=== PATIENT | female | born 1995 | race Caucasian/White ===

== ENCOUNTER 2018-12-09 16:56 | Emergency (ER) | payer OTHER, BC, SELFPAY ==
[2018-12-09 16:58] VITALS: BP 120/66; PULSE 77; RESP 18; TEMP 36.1; O2SAT 96; BMI 29.7
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
--- NOTE | 2018-12-09 17:30 | RAD_ITS ---
STUDY: X-RAY - CERVICAL SPINE REASON FOR EXAM: Female, 23 years old. Posttraumatic pain TECHNIQUE: 3 view(s) of the cervical spine were obtained. COMPARISON: None FINDINGS: Normal anterior atlantoaxial articulation. Normal odontoid process. Normal cervical lordosis. Normal vertebral bodies and endplates. Normal disc space heights. Normal visualized intervertebral neuroforamina. The soft tissue structures are unremarkable. RAD/Cerv Spine 2 or 3 Views IMPRESSION: Normal x-ray examination of the visualized cervical spine. Electronically Signed: Sumit Peterson MD at 18:49 EDT , Service support ,
[2018-12-09 19:38] VITALS: BP 110/86; PULSE 76; RESP 17; O2SAT 99
== END 2018-12-09 19:38 | disposition home or self-care (01) ==
PROVIDERS: Emergency Provider Emergency Medicine; Family Provider Family Medicine; PCP Family Medicine
DX: S16.1XXA Strain of muscle, fascia and tendon at neck level, initial encounter (principal); V89.2XXA Person injured in unspecified motor-vehicle accident, traffic, initial encounter
CPT/HCPCS: 72040; 99282

== ENCOUNTER 2020-01-02 12:06 | Emergency (ER) | payer BC, SELFPAY ==
[2020-01-02 12:08] VITALS: BP 143/85; PULSE 99; RESP 16; TEMP 36.3; O2SAT 98; BMI 36.0
[2020-01-02 12:18] VITALS: BP 123/69; PULSE 95; RESP 15; O2SAT 98
--- NOTE | 2020-01-02 12:20 | EKG12_ITS ---
Test Reason : CHEST PRESSURE Blood Pressure : / mmHG Vent. Rate : 078 BPM Atrial Rate : 078 BPM P-R Int : 130 ms QRS Dur : 086 ms QT Int : 368 ms P-R-T Axes : 046 077 024 degrees QTc Int : 419 ms Normal sinus rhythm Normal ECG Confirmed by LEANNA ROBERTS, RENE ([id number]), desk editor CHRISTOPHER MARTINEZ ([id number]) on 01/04/2020 9:36:00 AM Referred By: [facility] Confirmed By:RENE RAM MD
--- NOTE | 2020-01-02 12:21 | RAD_ITS ---
STUDY: X-RAY CHEST REASON FOR EXAM: Female, 24 years old. Mid chest pain started today after an anxiety attack -- syncope earlier today TECHNIQUE: PA and lateral views of the chest. COMPARISON: None. FINDINGS: EKG electrodes are seen. The lungs are clear and expanded. There is no demonstrated pleural abnormality. Normal size heart. Normal mediastinum and mykel. Normal visualized pulmonary arteries. Normal visualized aortic arch and descending thoracic aorta. Normal visualized thoracic spine. Normal visualized ribs, clavicles, and shoulders. There is no demonstrated abnormality of the visualized soft tissue structures of the upper abdomen. RAD/Chest PA and Lateral IMPRESSION: Normal x-ray examination of the chest. Electronically Signed: Valentín Mittal, at 13:13 EDT , Service support ,
--- NOTE | 2020-01-02 12:21 | ED.DCSUM_ITS ---
History of Present Illness Chief Complaint: Anxiety Narrative: Patient is a 24-year-old female who presents with chest pain and syncope. She states she was recently started on an anxiety medication. Since that time she has felt hot but not had a fever whenever her temperature was checked. She also complains of nausea. Today in the shower she began to feel lightheaded and she got very nauseated. She began to dry heaving to the toilet. She had a syncopal episode and woke on the floor. She now has sharp chest pain that is worse with movement of her arms or torso. She denies recent illness such as fevers cough diarrhea. She is on oral contraceptive. No history of DVT or pulmonary embolism. No leg pain or swelling. Past Medical History - Allergies and Home Meds Allergies/Adverse Reactions: Allergies cefaclor [From [facility]] Allergy (Verified 01/02/20 12:08) Hiv[facility] Primary Care Physician: Maritza Edmond DO [Primary Care Provider] - Past Medical History: - - Anxiety Smoking Status: Current every day smoker Review of Systems All systems negative except as indicated General: Denies: Fever Eyes: Denies: Visual changes - bilaterally ENT: Denies: Bilateral ear pain Cardiovascular: Reports: Chest pain, - - Syncope Respiratory: Denies: Dyspnea, Cough Gastrointestinal: Reports: Nausea, Vomiting. Denies: Abdominal pain Musculoskeletal: Denies: Myalgias, Arthralgias Skin: Denies: Rash Neurological: Denies: Headache Hematologic: Denies: Easy bruising Allergy: Denies: Uticaria Physical Exam Vital Signs/Narrative: Vital Signs Temp Pulse Resp BP Pulse Ox 01/02/20 12:18 95 15 123/69 H 98 01/02/20 12:08 97.3 F L 99 16 143/85 H 98 Inital Vital Signs reviewed: Yes General: Well nourished Head: Normocephalic Eyes: EOMI ENT: Moist mucous membranes Neck: Supple Cardiovascular: Regular rate, Regular rhythm, - - Symmetric palpable radial pulses Respiratory: No distress, CTA bilaterally Abdomen: Soft, Nontender Extremities: Nontender, No edema Skin: Normal color Neurological: Alert Psychological: Normal affect Diagnostic/Tx/Re-eval Impressions Chest X-Ray 01/02/20 12:21 IMPRESSION: Normal x-ray examination of the chest. Electronically Signed: Valentín Mittal, at 13:13 EDT , Service support , 01/02/20 12:21 Chest PA and Lateral [RAD] Stat Laboratory Results 01/02/20 01/02/20 01/02/20 12:33 12:33 12:33 WBC 13.3 H RBC 5.16 Hgb 15.4 H Hct 46.2 MCV 89.5 MCH 29.8 MCHC 33.3 RDW Std Deviation 38.5 RDW Coeff of [place] 11.9 Plt Count 258 MPV 9.2 Immature Gran % (Auto) 0.500 Neut % (Auto) 64.1 Lymph % (Auto) 18.3 L [place] % (Auto) 8.5 Eos % (Auto) 8.0 H Baso % (Auto) 0.6 Absolute Neuts (auto) 8.5 H Absolute Lymphs (auto) 2.42 Nucleated RBC % 0 PT 12.5 INR 1.0 D-Dimer Quant (PE/DVT) 0.28 Sodium 140 Potassium 4.0 Chloride 109 H Carbon Dioxide 25.0 Anion Gap 6 BUN 9 Creatinine 0.82 Estim Creat Clear Calc 92.93 Est GFR (MDRD) Af Amer 112 Est GFR (MDRD) Non-Af 92 BUN/Creatinine Ratio 11.0 Glucose 84 Calcium 9.2 Troponin I < 0.015 - Medical Decision Making EKG shows normal sinus rhythm at a rate of 78. Laboratory studies are normal. D-dimer is negative. Patient advised to follow-up with her primary care physician. She does understand return for new or worsening symptoms. She was advised on signs and symptoms to monitor for. All questions answered at bedside. Patient agreeable to this plan. ED Disposition - Plan for ED Patient: Disposition: Home or Assisted Living Diagnosis: Syncope Instructions: ED Fainting Uncertain Cause Referrals: Maritza Edmond DO [Primary Care Provider] -
[2020-01-02 12:49] LABS: Absolute Lymphocyte Count 2.42 X10^3/uL (0.83-4.51); Absolute Neutrophil Count 8.5 X10^3/uL (2.0-7.7); Basophil# 0.08 X10^3/uL; Basophil% 0.6 % (0-1); Eosinophil# 1.06 X10^3/uL; Hematocrit 46.2 % (37-47); Hemoglobin 15.4 g/dL (12.0-15.0); Lymphocyte # 2.42 X10^3/ul (4.0); Lymphocyte % 18.3 % (19-41); Mean Corp Hgb Conc 33.3 g/dL (32-36); Mean Corpuscular Hgb 29.8 pg (27.0-32.0); Mean Corpuscular Volume 89.5 fL (81-99); Mean Platelet Vol. 9.2 fl (6.2-12.0); Monocyte# 1.13 X10^3/uL; Monocyte% 8.5 % (0-10); NRBC Flagged by Analyzer 0 % (0-5); Neutrophil # 8.51 X10^3/uL (2.7-7.7); Neutrophil % 64.1 % (47-70); Platelet Count 258 K/mm3 (150-450); RBC Distribution Width CV 11.9 % (11.6-14.6); RBC Distribution Width SD 38.5 fl (35.1-43.9); Red Blood Count 5.16 M/mm3 (4.2-5.4); White Blood Count 13.3 K/mm3 (4.4-11.0)
[2020-01-02 13:04] LABS: Anion Gap 6 (5-15); BUN 9 mg/dL (7-18); Calcium,Total 9.2 mg/dL (8.5-10.1); Chloride 109 mmol/L (98-107); Creatinine, Serum 0.82 mg/dL (0.55-1.02); EST Glomerular Filtration Rate 92 mL/min (>60); Est Glom Filt Rate - Afr Amer 112 mL/min (>60); Estimated Creatinine Clearance 92.93 ml/min; Glucose 84 mg/dL (74-106); Sodium Level 140 mmol/L (136-145)
[2020-01-02 13:07] LABS: Prothrombin Time (Protime)PT. 12.5 SECONDS (11.7-14.9)
[2020-01-02 13:10] LABS: D-Dimer Quantitative (DVT/PE) 0.28 FEU/ug/m (0.27-0.49)
--- NOTE | 2020-01-02 13:38 | CM.ED ---
Social Work Consult: Anxiety Informant: Self-Referral Met with patient in room. Introduced self and social and political studies professor role. Patient agreeable to speaking with this social and political studies professor. Patient states to have recently started a medication for patient anxiety and to believe this is what triggered patient panic attack this morning. Patient states to have gone to have an ADHD screening completed and to have discovered that patient has severe anxiety. Patient denies any active counseling services. Patient did state that patient has been provided with information for the [facility] program and I need to look into that. Patient declining this social and political studies professor setting up appointment for patient at [facility]. Patient was agreeable to being provided with local counseling agencies. Patient states to live at home alone with dog. Patient currently works at [employer]. Patient denies any history or current suicidal thoughts/plans/intents. Patient denies any substance abuse or history of trauma/neglect/physical abuse. Patient states to have support from community. Patient with no concerns on returning to home. This social and political studies professor encouraging patient to explore counseling options as a support to assist patient in developing coping skills. Patient voicing understanding and states I need to set something up. Active support and listening provided. PLAN: Discharge to home. Olga HERNANDEZ, MIKHAIL
== END 2020-01-02 13:40 | disposition home or self-care (01) ==
PROVIDERS: Emergency Provider Emergency Medicine; PCP Family Medicine
DX: R55 Syncope and collapse (principal); F17.200 Nicotine dependence, unspecified, uncomplicated
CPT/HCPCS: 71046; 80048; 84484; 85025; 85379; 85610; 93005; 99284; A4216

== ENCOUNTER → 2020-05-22 09:32 | Outpatient (CLI) | payer BC, SELFPAY ==
[2020-05-22 10:08] LABS: Absolute Lymphocyte Count 2.45 X10^3/uL (0.83-4.51); Absolute Neutrophil Count 7.9 X10^3/uL (2.0-7.7); Basophil# 0.06 X10^3/uL; Basophil% 0.5 % (0-1); Eosinophil# 0.46 X10^3/uL; Hematocrit 46.7 % (37-47); Hemoglobin 15.4 g/dL (12.0-15.0); Lymphocyte # 2.45 X10^3/ul (4.0); Lymphocyte % 21.1 % (19-41); Mean Platelet Vol. 9.4 fl (6.2-12.0); Monocyte# 0.68 X10^3/uL; Monocyte% 5.8 % (0-10); NRBC Flagged by Analyzer 0 % (0-5); Neutrophil # 7.94 X10^3/uL (2.7-7.7); Neutrophil % 68.3 % (47-70); Platelet Count 316 K/mm3 (150-450); RBC Distribution Width CV 11.9 % (11.6-14.6); RBC Distribution Width SD 39.3 fl (35.1-43.9); Red Blood Count 5.13 M/mm3 (4.2-5.4); White Blood Count 11.6 K/mm3 (4.4-11.0)
[2020-05-22 10:27] LABS: hCG Titer Quant., Serum < 1 mIU/mL (1-3)
== END ==
LOC: PAVLAB 09:35
PROVIDERS: PCP Family Medicine; Referring Provider Nurse Practitioner Women's Health; Visit Provider Nurse Practitioner Women's Health
DX: N93.9 Abnormal uterine and vaginal bleeding, unspecified (principal)
CPT/HCPCS: 36415; 84702; 85025; 86850; 86900; 86901

== ENCOUNTER → 2021-05-11 22:14 | Outpatient (REF) | payer SELFPAY ==
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
== END | disposition home or self-care (01) ==
LOC: EDREF 22:14
DX: Z00.00 Encounter for general adult medical examination without abnormal findings (principal)